=== PATIENT | female | born 1980 | race Caucasian/White ===

== ENCOUNTER 2017-09-01 09:49 | Day surgery (SDC) | payer BC ==
[2017-08-28 17:12] VITALS: BMI 23.3
[~2017-09-01 09:49] MED LIST: LACTATED RINGERS 1,000 ML IV SCH; LIDOCAINE 1% 20 ML VIAL (10MG/ML) FOR IV START INTRADERMA PRN
[2017-09-01 10:31] VITALS: RESP 16; TEMP 97.5
[2017-09-01] MEDS ORDERED: PROPOFOL 10 MG/ML 20 ML VIAL IV ONE (10:48)
--- NOTE | 2017-09-01 11:03 | P.PCN ---
Date of Procedure: 09/01/17 Procedure(s) Performed: BRIEF HISTORY: Patient is a 37-year-old pleasant white female, scheduled for an elective colonoscopy as a part of evaluation of form chronic diarrhea for the last several months duration. She was diagnosed with Crohn's ileitis in 2010 and is status post terminal ileal resection for stricturing Crohn's disease. She started on any maintenance medications and recently has been having diarrhea with bowel movements anywhere from 10-12 a day which are loose to watery in consistency. She is hence scheduled for colonoscopy to evaluate for recurrent colon disease. PROCEDURE PERFORMED: Colonoscopy with biopsy. PREOPERATIVE DIAGNOSIS: long-standing history of Crohn's disease status post terminal ileal resection in 2010, chronic diarrhea. IV sedation per Anesthesia. PROCEDURE: After informed consent was obtained, the patient, was brought into the endoscopy unit. IV sedation was administered by Anesthesia under continuous monitoring. Digital rectal examination was normal. Initially the Olympus CF- 160 flexible video colonoscope was then inserted in the rectum, gradually advanced into the ascending colon with biliary colic anastomosis was visualized and appeared normal. The anastomosis was widely patent and the distal ileum also appeared normal. At this time the scope was withdrawn. The prep was excellent. The ascending colon, transverse colon, descending colon, sigmoid colon, and rectum appeared normal.random biopsies were done from the anastomosis as well as from the transverse colon. Retroflexion was performed in the rectum and no lesions were seen. The patient tolerated the procedure well. IMPRESSION: Normal-appearing colon from rectum to the ileocolic anastomosis with no evidence of recurrent Crohn's disease. RECOMMENDATIONS: Findings of this examination were discussed with the patient as well as her family. She was advised to follow with the biopsy results. She' ll be started on cholestyramine 4 g twice daily for bile salt diarrhea. She will be seen in the office in 3-4 weeks.
[2017-09-01 11:22] VITALS: BP 112/69; PULSE 66
== END 2017-09-01 11:56 | disposition home or self-care (01) ==
LOC: ORWHC2ENDO 09:49
PROVIDERS: ATTEND Internal Medicine Gastroenterology
DX: K52.9 Noninfective gastroenteritis and colitis, unspecified (principal); Z90.49 Acquired absence of other specified parts of digestive tract; K50.00 Crohn's disease of small intestine without complications
CPT/HCPCS: 81025; 88305; 45380; J2704

== ENCOUNTER → 2019-03-07 | Outpatient (CLI) | payer BC ==
--- NOTE | 2019-03-07 11:35 | MM ---
Reason for exam: screening (asymptomatic). Baseline mammogram. History: Retro-pectoral saline implants in both breasts, 2009. Physical Findings: Nurse Summary: 1cm nodule in the left breast at 2 o'clock (nurse jose). MG Screening Mammo Implant/CAD Bilateral CC, MLO, and ID view(s) were taken. The breast tissue is heterogeneously dense. This may lower the sensitivity of mammography. No suspicious abnormality. Bilateral retropectoral saline implants. These results were verbally communicated with the patient and result sheet given to the patient on 03/07/19. ASSESSMENT: Incomplete: need additional imaging evaluation, BI-RAD 0 RECOMMENDATION: Ultrasound of the left breast. (palpable)
--- NOTE | 2019-03-07 11:38 | USB ---
Reason for exam: additional evaluation requested from abnormal screening. History: Retro-pectoral saline implants in both breasts, 2010. Physical Findings: Breast exam preformed at baseline screening. US Breast Workup Limited LT Left limited breast ultrasound including focal area of concern, retroareolar and axilla demonstrates no cystic or solid lesion seen. These results were verbally communicated with the patient and result sheet given to the patient on 03/07/19. ASSESSMENT: Negative, BI-RAD 1 RECOMMENDATION: Return to routine screening mammogram schedule for both breasts.
== END | disposition home or self-care (01) ==
LOC: RADMAMWWP 09:37
PROVIDERS: ATTEND Obstetrics & Gynecology
DX: Z12.31 Encounter for screening mammogram for malignant neoplasm of breast (principal); R92.8 Other abnormal and inconclusive findings on diagnostic imaging of breast; Z98.82 Breast implant status
CPT/HCPCS: 77067

== ENCOUNTER → 2020-12-07 | Outpatient (CLI) | payer MEDICAID ==
--- NOTE | 2020-12-07 14:58 | MM ---
Reason for exam: clinical finding. Last mammogram was performed 1 year and 9 months ago. History: Retro-pectoral saline implants in both breasts, 2010. Physical Findings: Nurse did not find any significant physical abnormalities on exam. MG 3D Diag Mammo Imp W/Cad RADHA Bilateral CC, MLO, and ID view(s) were taken. No prior studies available for comparison. Bilateral breast prothesis. These results were verbally communicated with the patient and result sheet given to the patient on 12/07/20. ASSESSMENT: Benign, BI-RAD 2 RECOMMENDATION: Routine screening mammogram of both breasts in 1 year.
== END | disposition home or self-care (01) ==
LOC: RADMAMWWP 09:19
PROVIDERS: ATTEND Obstetrics & Gynecology
DX: N64.4 Mastodynia (principal)
CPT/HCPCS: 77062; 77066

== ENCOUNTER → 2021-04-22 | Outpatient (CLI) | payer MEDICAID ==
[2021-04-22 15:23] LABS: Ferritin 32.2 ng/mL (10.0-291.0)
[2021-04-22 15:50] LABS: % Iron Saturation 33.43 (12.00-45.00); ALT 17 U/L (8-44); AST 23 U/L (13-35); African American GFR (CKD) 106.9 (60.0-200.0); Albumin/Globulin Ratio 1.92 (1.60-3.17); Alkaline Phosphatase 64 U/L (41-126); C Reactive Protein <0.4 mg/dL (0.0-0.8); Calcium 9.8 mg/dL (8.7-10.3); Carbon Dioxide 28.7 mmol/L (21.6-31.8); Chloride 106 mmol/L (96-109); Folate, Serum 21.9 ng/mL; Globulin 2.5 g/dL (1.6-3.3); Glucose 99 mg/dL (70-110); Iron 115 ug/dL (50-170); Non-African American GFR(CKD) 92.2 (60.0-200.0); Potassium 4.7 mmol/L (3.5-5.5); Sodium 142 mmol/L (135-145); Total Bilirubin 0.7 mg/dL (0.3-1.2); Total Iron Binding Capacity 344 ug/dL (228-460); Total Protein 7.3 g/dL (6.2-8.2)
[2021-04-22 16:55] LABS: Basophils # (A) 0.03 X 10*3/uL (0.00-0.10); Basophils % (A) 0.6 %; Eosinophils # (A) 0.11 X 10*3/uL (0.04-0.35); Eosinophils % (A) 2.2 %; HCT 39.6 % (37.2-46.3); HGB 13.2 g/dL (12.0-15.0); Lymphocytes # (A) 1.34 X 10*3/uL (0.90-5.00); Lymphocytes % (A) 27.4 %; MCHC 33.3 g/dL (32.0-37.0); Mean Platelet Volume 10.8 fL (9.5-12.2); Monocytes # (A) 0.35 X 10*3/uL (0.20-1.00); Monocytes % (A) 7.2 %; Neutrophils # (A) 3.05 X 10*3/uL (1.80-7.70); Neutrophils % (A) 62.4 %; Platelet Count 269 X 10*3/uL (140-440); RDW 13.2 % (11.5-14.5); WBC 4.89 X 10*3/uL (4.50-10.00)
[2021-04-22 20:12] LABS: Erythrocyte Sedimentation Rate 7 mm/Hr (0-20)
== END | disposition home or self-care (01) ==
LOC: LABWHC1 09:39
PROVIDERS: ATTEND Internal Medicine Gastroenterology
DX: F31.9 Bipolar disorder, unspecified (principal)
CPT/HCPCS: 36415; 80053; 82306; 82607; 82728; 82746; 83540; 83550; 85025; 85652; 86140; 86480; 87340